=== PATIENT | female | born 1940 | race Caucasian/White ===

== ENCOUNTER → 2019-04-09 13:19 | Outpatient (REF) | payer MEDICARE, OTHER, SELFPAY | LOC: OLS.ACW400 13:19 | PROVIDERS: Visit Provider Family Medicine | DX: S82.202D Unspecified fracture of shaft of left tibia, subsequent encounter for closed fracture with routine healing (principal); A41.9 Sepsis, unspecified organism; S82.402D Unspecified fracture of shaft of left fibula, subsequent encounter for closed fracture with routine healing | CPT/HCPCS: 82274; 87493 ==

== ENCOUNTER → 2019-04-16 05:00 | Outpatient (REF) | payer MEDICARE, OTHER, SELFPAY ==
[2019-04-16 07:07] LABS: Hematocrit 28.7 % (37-47)
== END ==
LOC: OLS.ACW400 05:00
PROVIDERS: Visit Provider Family Medicine
DX: S82.202D Unspecified fracture of shaft of left tibia, subsequent encounter for closed fracture with routine healing (principal); A41.9 Sepsis, unspecified organism; S82.402D Unspecified fracture of shaft of left fibula, subsequent encounter for closed fracture with routine healing
CPT/HCPCS: 36415; 85014; 85018

== ENCOUNTER → 2019-04-29 05:00 | Outpatient (REF) | payer MEDICARE, OTHER, SELFPAY ==
[2019-04-29 08:22] LABS: Anion Gap 6 (5-15); BUN 66 mg/dL (7-18); BUN/Creat Ratio 23.6 RATIO (10-20); Chloride 102 mmol/L (98-107); EST Glomerular Filtration Rate 17 mL/min (>60); Est Glom Filt Rate - Afr Amer 21 mL/min (>60); Glucose 192 mg/dL (74-106); Potassium 4.2 mmol/L (3.5-5.1); Sodium Level 134 mmol/L (136-145)
== END ==
LOC: OLS.ACW400 05:00
PROVIDERS: Visit Provider Family Medicine
DX: S82.202D Unspecified fracture of shaft of left tibia, subsequent encounter for closed fracture with routine healing (principal); A41.9 Sepsis, unspecified organism; S82.402D Unspecified fracture of shaft of left fibula, subsequent encounter for closed fracture with routine healing
CPT/HCPCS: 36415; 80048

== ENCOUNTER → 2019-05-10 01:30 | Outpatient (REF) | payer MEDICARE, OTHER, SELFPAY ==
[2019-05-10 08:00] LABS: Color, Urine Yellow (Yellow); Glucose, Dipstick Normal (Normal); Ketone-Dipstick Negative (Negative); Leukocyte Esterase-Dipstick 500 /ul (Negative); Nitrite-Dipstick Positive (Negative); Occult Blood-Urine 150 /ul (Negative); Protein-Dipstick 30 mg/dl (Negative); Urine Bilirubin Dipstick Negative (Negative); Urine Clarity Sl. Cloudy (Clear); Urine Urobilinogen Normal (Normal)
== END ==
LOC: OLS.ACW400 01:30
PROVIDERS: Visit Provider Family Medicine
DX: S82.202D Unspecified fracture of shaft of left tibia, subsequent encounter for closed fracture with routine healing (principal); A41.9 Sepsis, unspecified organism; S82.402D Unspecified fracture of shaft of left fibula, subsequent encounter for closed fracture with routine healing
CPT/HCPCS: 81002; 87086

== ENCOUNTER → 2019-12-17 19:00 | Outpatient (REF) | payer MEDICARE, MEDICAID, SELFPAY | LOC: OLS.ACW200 19:00 | PROVIDERS: Referring Provider Family Medicine; Visit Provider Family Medicine | DX: S82.202D Unspecified fracture of shaft of left tibia, subsequent encounter for closed fracture with routine healing (principal); A41.9 Sepsis, unspecified organism; S82.402D Unspecified fracture of shaft of left fibula, subsequent encounter for closed fracture with routine healing | CPT/HCPCS: 87077; 87086; 87088; 87186 ==

== ENCOUNTER → 2020-01-05 07:05 | Outpatient (REF) | payer MEDICARE, OTHER, SELFPAY | LOC: OLS.ACW200 07:05 | PROVIDERS: Visit Provider Family Medicine | DX: Z11.59 Encounter for screening for other viral diseases (principal); S82.202D Unspecified fracture of shaft of left tibia, subsequent encounter for closed fracture with routine healing; A41.9 Sepsis, unspecified organism; S82.402D Unspecified fracture of shaft of left fibula, subsequent encounter for closed fracture with routine healing | CPT/HCPCS: 87635; U0003 ==

== ENCOUNTER → 2020-02-28 03:00 | Outpatient (REF) | payer MEDICARE, MEDICAID, SELFPAY ==
[2020-02-28 07:52] LABS: Color, Urine Red (Yellow); Glucose, Dipstick Normal (Normal); Ketone-Dipstick Negative (Negative); Leukocyte Esterase-Dipstick 500 /ul (Negative); Nitrite-Dipstick Positive (Negative); Occult Blood-Urine 250 /ul (Negative); Protein-Dipstick 100 mg/dl (Negative); Specific Gravity, Urine 1.005 (1.002-1.030); Urine Bilirubin Dipstick Negative (Negative); Urine Clarity Cloudy (Clear); Urine Urobilinogen Normal (Normal)
== END ==
LOC: OLS.ACW400 03:00
PROVIDERS: Referring Provider Family Medicine; Visit Provider Family Medicine
DX: A41.9 Sepsis, unspecified organism (principal); R41.82 Altered mental status, unspecified; E16.2 Hypoglycemia, unspecified; A49.02 Methicillin resistant Staphylococcus aureus infection, unspecified site; J44.1 Chronic obstructive pulmonary disease with (acute) exacerbation
CPT/HCPCS: 81002; 87077; 87086; 87088; 87186

== ENCOUNTER → 2020-03-03 10:37 | Outpatient (REF) | payer MEDICARE, OTHER, MEDICAID, SELFPAY | LOC: OLS.ACW400 10:37 | PROVIDERS: Visit Provider Family Medicine | DX: Z03.818 Encounter for observation for suspected exposure to other biological agents ruled out (principal) | CPT/HCPCS: 87635; U0003 ==

== ENCOUNTER → 2020-03-09 13:44 | Outpatient (REF) | payer MEDICARE, OTHER, MEDICAID, SELFPAY | LOC: OLS.ACW400 13:44 | PROVIDERS: Referring Provider Family Medicine; Visit Provider Family Medicine | DX: Z03.818 Encounter for observation for suspected exposure to other biological agents ruled out (principal) | CPT/HCPCS: 87635; U0003 ==

== ENCOUNTER → 2020-03-10 05:00 | Outpatient (REF) | payer MEDICARE, OTHER, MEDICAID, SELFPAY ==
[2020-03-10 08:28] LABS: Anion Gap 6 (5-15); BUN 62 mg/dL (7-18); BUN/Creat Ratio 29.1 RATIO (10-20); Calcium,Total 8.7 mg/dL (8.5-10.1); Chloride 91 mmol/L (98-107); Creatinine, Serum 2.13 mg/dL (0.55-1.02); EST Glomerular Filtration Rate 24 mL/min (>60); Est Glom Filt Rate - Afr Amer 29 mL/min (>60); Glucose 189 mg/dL (74-106); Potassium 3.3 mmol/L (3.5-5.1); Sodium Level 134 mmol/L (136-145)
== END ==
LOC: OLS.ACW400 05:00
PROVIDERS: Referring Provider Family Medicine; Visit Provider Family Medicine
DX: A41.9 Sepsis, unspecified organism (principal); E16.2 Hypoglycemia, unspecified; A49.02 Methicillin resistant Staphylococcus aureus infection, unspecified site; R41.82 Altered mental status, unspecified; J44.1 Chronic obstructive pulmonary disease with (acute) exacerbation
CPT/HCPCS: 36415; 80048

== ENCOUNTER → 2020-03-11 08:20 | Outpatient (REF) | payer MEDICARE, OTHER, MEDICAID, SELFPAY ==
[2020-03-11 10:03] LABS: Albumin, Serum 2.2 g/dL (3.2-5.0); BUN 61 mg/dL (7-18); BUN/Creat Ratio 33.5 RATIO (10-20); Calcium,Total 8.6 mg/dL (8.5-10.1); Chloride 91 mmol/L (98-107); Creatinine, Serum 1.82 mg/dL (0.55-1.02); EST Glomerular Filtration Rate 28 mL/min (>60); Est Glom Filt Rate - Afr Amer 34 mL/min (>60); Glucose 248 mg/dL (74-106); Phosphorus 2.4 mg/dL (2.5-4.9); Potassium 3.6 mmol/L (3.5-5.1); Sodium Level 132 mmol/L (136-145)
== END ==
LOC: OLS.ACW400 08:20
PROVIDERS: Referring Provider Family Medicine; Visit Provider Family Medicine
DX: A41.9 Sepsis, unspecified organism (principal); E16.2 Hypoglycemia, unspecified; A49.02 Methicillin resistant Staphylococcus aureus infection, unspecified site; R41.82 Altered mental status, unspecified; J44.1 Chronic obstructive pulmonary disease with (acute) exacerbation
CPT/HCPCS: 36415; 80069

== ENCOUNTER → 2020-04-06 03:00 | Outpatient (REF) | payer MEDICARE, OTHER, MEDICAID, SELFPAY | LOC: OLS.ACW400 03:00 | PROVIDERS: Visit Provider Family Medicine | DX: A41.9 Sepsis, unspecified organism (principal); E16.2 Hypoglycemia, unspecified; A49.02 Methicillin resistant Staphylococcus aureus infection, unspecified site; R41.82 Altered mental status, unspecified; J44.1 Chronic obstructive pulmonary disease with (acute) exacerbation | CPT/HCPCS: 87077; 87086; 87088; 87186 ==